=== PATIENT | female | born 1950 | race Caucasian/White ===

== ENCOUNTER 2019-12-22 16:07 | Emergency (ER) | payer MEDICARE ==
[2019-12-22] MEDS ORDERED: Acetaminophen 500 MG TAB ONE (16:18)
--- NOTE | 2019-12-22 16:59 | CT ---
CT of thefacial bones: 12/22/2019 COMPARISON:None available HISTORY:Fall, trauma, pain TECHNIQUE: Serial axial CT imaging at2.5 mm intervals through the facial bones without contrast. Kel nal and sagittal reformatted imaging obtained. Findings:The partially imaged brain parenchyma demonstrates no acute findings. Orbits/globes appear grossly unremarkable bilaterally. The frontal sinuses, maxillary sinuses, ethmoid air cells, sphenoid sinuses, and mastoid air cells ap pear well-aerated. The nasal bones, the zygomatic arches, and the pterygoid plates appear intact. The mandible and the temporomandibular joints demonstrate no acute findings. The orbital floor and the medial orbital wall appears intact bilaterally. Partially imaged cervical spine demonstrates multilevel facet hypertrophy, right greater than left, a s well as degenerative change at the atlantoaxial interspace. There is a calcific density anterior to the mandibular condyle on the right, likely associated with prior trauma or degenerative change. Impression:No displaced fracture seen.
== END 2019-12-22 17:15 | disposition home or self-care (01) ==
LOC: NAV ERS 16:07
DX: S00.83XA Contusion of other part of head, initial encounter (principal); M79.7 Fibromyalgia; E03.9 Hypothyroidism, unspecified; I10 Essential (primary) hypertension; F32.9 Major depressive disorder, single episode, unspecified; Z79.84 Long term (current) use of oral hypoglycemic drugs; Z79.899 Other long term (current) drug therapy; W01.10XA Fall on same level from slipping, tripping and stumbling with subsequent striking against unspecified object, initial encounter
CPT/HCPCS: 70486